=== PATIENT | male | born 2000 | race Caucasian/White ===

== ENCOUNTER 2021-05-10 16:40 | Emergency (ER) | payer MEDICAID ==
[~2021-05-10] VITALS: Ht 172.7 cm; Wt 75.0 kg
[2021-05-10] MEDS ORDERED: KEPPSOL GT (17:00)
[2021-05-10] MEDS ORDERED: LEVETIRACETAM 1000MG PREMIX 100 ML IV ONE (17:15)
[2021-05-10] MEDS ORDERED: TOPUD PO (18:04)
[2021-05-10] MEDS ORDERED: LEVETIRACETAM 500MG TABLET PO ONE (18:15)
[2021-05-10 18:40] VITALS: BP 118/76
== END 2021-05-10 18:41 | disposition home or self-care (01) ==
LOC: ER 16:40
DX: G40.909 Epilepsy, unspecified, not intractable, without status epilepticus (principal); Z91.14 Patient's other noncompliance with medication regimen; K94.03 Colostomy malfunction; Y82.8 Other medical devices associated with adverse incidents; Y92.018 Other place in single-family (private) house as the place of occurrence of the external cause; Z87.828 Personal history of other (healed) physical injury and trauma
CPT/HCPCS: 99283

== ENCOUNTER 2021-05-10 19:33 | Emergency (ER) | payer MEDICAID ==
[~2021-05-10] VITALS: Ht 190.5 cm; Wt 60.0 kg
[~2021-05-10 19:33] MED LIST: KEPPSOL GT; TOPUD PO
[2021-05-10 20:30] VITALS: BP 147/86
[2021-05-12] MEDS ORDERED: CLOT15CR27 TP (14:58)
== END 2021-05-11 | disposition home or self-care (01) ==
LOC: ER 19:33
DX: K94.03 Colostomy malfunction (principal); Z98.890 Other specified postprocedural states
CPT/HCPCS: 93005; 99283

== ENCOUNTER 2021-05-12 12:24 | Emergency (ER) | payer MEDICAID ==
[~2021-05-12] VITALS: Ht 185.4 cm; Wt 85.0 kg
[2021-05-12 12:28] VITALS: BP 133/76
[2021-05-12] MEDS ORDERED: IBUPROFEN 400MG TABLET PO ONE (13:00)
[2021-05-12] MEDS ORDERED: ACETAMINOPHEN 325MG TABLET PO ONE (13:00)
[2021-05-12] MEDS ORDERED: CLOT15CR27 TP (14:58)
== END 2021-05-12 16:11 | disposition home or self-care (01) ==
LOC: ER 12:24
DX: B35.3 Tinea pedis (principal); G40.909 Epilepsy, unspecified, not intractable, without status epilepticus; Z93.3 Colostomy status
CPT/HCPCS: 73630; 99283

== ENCOUNTER 2021-05-24 05:28 | Emergency (ER) | payer MEDICAID ==
[~2021-05-24] VITALS: Ht 175.3 cm; Wt 57.3 kg
[~2021-05-24 05:28] MED LIST changes: +CLOT15CR27 TP
[2021-05-24] MEDS ORDERED: ACETAMINOPHEN 325MG TABLET PO STA (06:45)
[2021-05-24 07:14] LABS: EOSINOPHILS % 2.9 % (0.0-5.0); HEMATOCRIT. 40.9 % (42.0-52.0); HEMOGLOBIN. 13.5 g/dL (14.0-18.0); LYMPHOCYTES % 39.2 % (20.0-50.0); MEAN CORPUSCULAR HEMOGLOBIN 30.3 pg (28.0-32.0); MEAN CORPUSCULAR VOLUME 91.7 fL (80.0-94.0); NEUTROPHILS % 45.9 % (40.0-76.0); RED BLOOD CELL COUNT 4.46 mill/uL (4.7-6.1); RED CELL DISTRIBUTION WIDTH 15.7 % (11.6-14.6)
[2021-05-24 07:24] LABS: CHLORIDE 109 mEq/L (98-107)
[2021-05-24 07:47] LABS: PLATELET 256 x1000/uL (130-400)
[2021-05-24 09:36] VITALS: BP 98/54
[2021-05-24] MEDS ORDERED: TOPUD MT (09:45)
== END 2021-05-24 10:11 | disposition home or self-care (01) ==
LOC: ER 05:28
DX: R10.31 Right lower quadrant pain (principal); I10 Essential (primary) hypertension; G40.909 Epilepsy, unspecified, not intractable, without status epilepticus; J45.909 Unspecified asthma, uncomplicated; F99 Mental disorder, not otherwise specified; F17.210 Nicotine dependence, cigarettes, uncomplicated; Z98.84 Bariatric surgery status; Z93.1 Gastrostomy status
CPT/HCPCS: 36415; 74018; 80053; 85025; 99284

== ENCOUNTER 2021-06-01 22:46 | Emergency (ER) | payer MEDICAID ==
[~2021-06-01] VITALS: Ht 177.8 cm; Wt 69.0 kg
[~2021-06-01 22:46] MED LIST changes: +TOPUD MT
[2021-06-02 00:34] LABS: CHLORIDE 108 mEq/L (98-107)
[2021-06-02 00:40] LABS: BASOPHILS % 0.4 % (0.0-2.0); EOSINOPHILS % 1.5 % (0.0-5.0); HEMATOCRIT. 40.2 % (42.0-52.0); HEMOGLOBIN. 13.4 g/dL (14.0-18.0); LYMPHOCYTES % 44.7 % (20.0-50.0); MEAN CORPUSCULAR HEMOGLOBIN 30.7 pg (28.0-32.0); MEAN CORPUSCULAR VOLUME 92.5 fL (80.0-94.0); MONOCYTES % 10.9 % (2.0-8.0); NEUTROPHILS % 42.5 % (40.0-76.0); PLATELET 273 x1000/uL (130-400); RED BLOOD CELL COUNT 4.35 mill/uL (4.7-6.1); RED CELL DISTRIBUTION WIDTH 15.3 % (11.6-14.6)
[2021-06-02] MEDS ORDERED: HYDROCODONE/ACETAMINOPHEN 5/325MG TABLET PO ONE (01:45)
[2021-06-02] MEDS ORDERED: IBUP-2029 MT (01:46)
[2021-06-02 01:49] VITALS: BP 122/87
== END 2021-06-02 02:06 | disposition home or self-care (01) ==
LOC: ER 22:46
DX: R10.9 Unspecified abdominal pain (principal); K85.90 Acute pancreatitis without necrosis or infection, unspecified; I10 Essential (primary) hypertension; G40.909 Epilepsy, unspecified, not intractable, without status epilepticus; J45.909 Unspecified asthma, uncomplicated; F99 Mental disorder, not otherwise specified; Z93.3 Colostomy status; Z87.828 Personal history of other (healed) physical injury and trauma; Z98.890 Other specified postprocedural states
CPT/HCPCS: 36415; 74021; 80053; 85025; 99284

== ENCOUNTER 2021-06-06 18:36 | Inpatient (IN) | payer MEDICAID ==
[~2021-06-06] VITALS: Ht 190.5 cm; Wt 72.6 kg
[~2021-06-06 18:36] MED LIST changes: +IBUP-2029 MT
[2021-06-06] MEDS ORDERED: ONDANSETRON HCL 4MG/2ML INJ IV STA (19:44)
[2021-06-06] MEDS ORDERED: MORPHINE SULFATE 4 MG/ML CPJ (NOT FOR IM USE) IV STA (19:44)
[2021-06-06] MEDS ORDERED: SODIUM CHLORIDE 0.9% 1,000 ML IV ONE (19:45)
[2021-06-06 21:20] LABS: BASOPHILS % 0.6 % (0.0-2.0); EOSINOPHILS % 1.1 % (0.0-5.0); HEMATOCRIT. 45.5 % (42.0-52.0); HEMOGLOBIN. 15.3 g/dL (14.0-18.0); LYMPHOCYTES % 36.6 % (20.0-50.0); MEAN CORPUSCULAR HEMOGLOBIN 30.3 pg (28.0-32.0); MEAN CORPUSCULAR VOLUME 90.3 fL (80.0-94.0); MEAN PLATELET VOLUME 7.1 fl (7.4-10.4); MONOCYTES % 8.9 % (2.0-8.0); NEUTROPHILS % 52.8 % (40.0-76.0); PLATELET 308 x1000/uL (130-400); RED BLOOD CELL COUNT 5.04 mill/uL (4.7-6.1); RED CELL DISTRIBUTION WIDTH 15.2 % (11.6-14.6)
[2021-06-06 21:24] LABS: CHLORIDE 105 mEq/L (98-107)
[2021-06-06 21:28] LABS: PARTIAL THROMBOPLASTIN TIME 29.1 sec (23.4-31.0); PROTHROMBIN TIME 10.5 sec (9.6-11.0)
[2021-06-07 02:12] LABS: CLARITY URINE CLEAR (CLEAR); COLOR URINE YELLOW (YELLOW); KETONES URINE NEGATIVE (NEGATIVE); LEUKOCYTE ESTERASE URINE NEGATIVE (NEGATIVE); NITRITE URINE NEGATIVE (NEGATIVE); OCCULT BLOOD URINE NEGATIVE (NEGATIVE); PH URINE 5.5 (4.5-8.0); PROTEIN URINE NEGATIVE (NEGATIVE); SPECIFIC GRAVITY URINE 1.018 (1.005-1.030); UROBILINOGEN URINE 0.2 E.U./dL (0.2-1.0)
[2021-06-07] MEDS ORDERED: MORPHINE SULFATE 4 MG/ML CPJ (NOT FOR IM USE) IV ONE (03:45)
[2021-06-07 11:17] VITALS: BP 111/49
[2021-06-07] MEDS ORDERED: TRAMADOL 50MG TABLET PO PRN (11:45)
[2021-06-07] MEDS ORDERED: ONDANSETRON HCL 4MG/2ML INJ IV PRN (11:45)
[2021-06-07] MEDS ORDERED: NALOXONE HCL 0.4MG/ML VIAL IV PRN (12:30)
[2021-06-07] MEDS: NICOTINE 21MG PATCH TD SCH (13:00)
[2021-06-07] MEDS: PANTOPRAZOLE SODIUM 40 MG/VIAL IV SCH ×2 (14:05→22:55)
[2021-06-07] MEDS ORDERED: KETOROLAC 30MG/ML VIAL IV PRN (17:45)
[2021-06-07] MEDS: HYDROCODONE/ACETAMINOPHEN 5/325MG TABLET PO PRN ×2 (18:13→22:56)
[2021-06-07 18:18] VITALS: BP 106/39
[2021-06-07 20:00] VITALS: BP 108/59
[2021-06-07] MEDS ORDERED: INFLUENZA VACCINE 05/PF 0.5 ML SYRINGE IM ONE (21:30)
[2021-06-08] VITALS: BP 99/59
[2021-06-08 00:14] LABS: HEMATOCRIT 41.1 % (42.0-52.0); HEMOGLOBIN 13.3 g/dL (14.0-18.0)
[2021-06-08 01:23] LABS: *AMPHETAMINES SCREEN URINE NEGATIVE (NEGATIVE); *BARBITURATES SCREEN URINE NEGATIVE (NEGATIVE); *BENZODIAZEPINES SCREEN URINE NEGATIVE (NEGATIVE); *COCAINE SCREEN URINE NEGATIVE (NEGATIVE); CANNABINOID URINE SCREEN PRESUMTIVE POSITIVE (NEGATIVE); METHADONE URINE SCREEN NEGATIVE (NEGATIVE); OPIATES URINE SCREEN PRESUMTIVE POSITIVE (NEGATIVE)
[2021-06-08 01:24] LABS: PHENCYCLIDINE URINE SCREEN NEGATIVE (NEGATIVE)
[2021-06-08] MEDS ORDERED: DIPHENHYDRAMINE 25MG CAPSULE PO PRN (01:45)
[2021-06-08 04:00] VITALS: BP 98/68
[2021-06-08 08:00] VITALS: BP 98/46
[2021-06-08] MEDS: PANTOPRAZOLE SODIUM 40 MG/VIAL IV SCH (09:30)
[2021-06-08 12:00] VITALS: BP 99/39
[2021-06-08] MEDS: NICOTINE 21MG PATCH TD SCH (12:50)
[2021-06-08] MEDS: HYDROCODONE/ACETAMINOPHEN 5/325MG TABLET PO PRN (12:51)
[2021-06-08 15:22] VITALS: BP 123/62
== END 2021-06-08 18:17 | disposition home or self-care (01) | DRG 253 ==
LOC: ER 18:36 → 7EST 06-07 03:14 → ENRESERV 06-07 10:06
PROVIDERS: ADMIT Internal Medicine; ATTEND Internal Medicine
DX: K92.2 Gastrointestinal hemorrhage, unspecified (principal); F17.210 Nicotine dependence, cigarettes, uncomplicated; J45.909 Unspecified asthma, uncomplicated; I10 Essential (primary) hypertension; G40.909 Epilepsy, unspecified, not intractable, without status epilepticus; R10.9 Unspecified abdominal pain; Z71.6 Tobacco abuse counseling; Z93.3 Colostomy status
CPT/HCPCS: 36415; 71045; 74176; 80053; 80305; 81003; 84484; 85014; 85018; 85025; 86850; 86900; 90686; 93005; 99285; C9113; J2270; J2405; J7030; Q0163

== ENCOUNTER 2021-08-27 20:58 | Emergency (ER) | payer MEDICAID ==
[~2021-08-27] VITALS: Ht 185.4 cm; Wt 84.0 kg
[2021-08-27] MEDS ORDERED: ACETAMINOPHEN 325MG TABLET PO STA (22:51)
[2021-08-27 23:12] LABS: CLARITY URINE CLEAR (CLEAR); COLOR URINE YELLOW (YELLOW); KETONES URINE TRACE (NEGATIVE); LEUKOCYTE ESTERASE URINE NEGATIVE (NEGATIVE); NITRITE URINE NEGATIVE (NEGATIVE); OCCULT BLOOD URINE NEGATIVE (NEGATIVE); PH URINE 5.5 (4.5-8.0); PROTEIN URINE 1+ (NEGATIVE); SPECIFIC GRAVITY URINE 1.021 (1.005-1.030); UROBILINOGEN URINE 0.2 E.U./dL (0.2-1.0)
[2021-08-27 23:32] LABS: CHLORIDE 114 mEq/L (98-107)
[2021-08-27 23:38] LABS: ETHANOL BLOOD < 10 mg/dL
[2021-08-27 23:39] LABS: BASOPHILS % 0.6 % (0.0-2.0); EOSINOPHILS % 2.6 % (0.0-5.0); HEMATOCRIT. 35.1 % (42.0-52.0); HEMOGLOBIN. 11.7 g/dL (14.0-18.0); LYMPHOCYTES % 25.9 % (20.0-50.0); MEAN CORPUSCULAR HEMOGLOBIN 30.7 pg (28.0-32.0); MEAN CORPUSCULAR VOLUME 91.7 fL (80.0-94.0); MEAN PLATELET VOLUME 7.2 fl (7.4-10.4); MONOCYTES % 11.7 % (2.0-8.0); NEUTROPHILS % 59.2 % (40.0-76.0); PLATELET 262 x1000/uL (130-400); RED BLOOD CELL COUNT 3.83 mill/uL (4.7-6.1); RED CELL DISTRIBUTION WIDTH 14.1 % (11.6-14.6)
[2021-08-28] MEDS ORDERED: AZIT250T12 PO (02:02)
[2021-08-28] MEDS ORDERED: DEXTL PO (02:02)
[2021-08-28] MEDS ORDERED: ALBU18HF2 IH (02:02)
[2021-08-28 03:07] VITALS: BP 126/65
== END 2021-08-28 03:22 | disposition home or self-care (01) ==
LOC: ER 20:58
DX: J45.901 Unspecified asthma with (acute) exacerbation (principal); R05.9 Cough, unspecified; R04.2 Hemoptysis; I10 Essential (primary) hypertension; G40.909 Epilepsy, unspecified, not intractable, without status epilepticus; F12.10 Cannabis abuse, uncomplicated; Z93.3 Colostomy status
CPT/HCPCS: 36415; 71045; 80053; 80320; 81003; 85025; 99284; G0480

== ENCOUNTER 2021-09-10 12:46 | Emergency (ER) | payer MEDICAID ==
[~2021-09-10] VITALS: Ht 190.5 cm; Wt 68.0 kg
[~2021-09-10 12:46] MED LIST changes: +ALBU18HF2 IH; +AZIT250T12 PO; -CLOT15CR27 TP; +DEXTL PO; -IBUP-2029 MT; -KEPPSOL GT; -TOPUD MT; -TOPUD PO
[2021-09-10 13:21] VITALS: BP 116/31
== END 2021-09-10 16:24 | disposition home or self-care (01) ==
LOC: ER 12:46
DX: Z43.3 Encounter for attention to colostomy (principal); J45.909 Unspecified asthma, uncomplicated; I10 Essential (primary) hypertension; G40.909 Epilepsy, unspecified, not intractable, without status epilepticus; F12.10 Cannabis abuse, uncomplicated; Z87.828 Personal history of other (healed) physical injury and trauma; Z98.890 Other specified postprocedural states
CPT/HCPCS: 99281

== ENCOUNTER 2023-06-11 01:29 | Emergency (ER) | payer MEDICAID ==
[~2023-06-11] VITALS: Ht 170.2 cm; Wt 70.0 kg
[~2023-06-11 01:29] MED LIST changes: -AZIT250T12 PO
[2023-06-11 01:31] VITALS: O2SAT 98
[2023-06-11] MEDS: SODIUM CHLORIDE 0.9% 1,000 ML IV ONE (03:18)
[2023-06-11] MEDS: KETOROLAC 15MG/ML VIAL IV ONE (03:19)
[2023-06-11 03:24] LABS: HEMATOCRIT. 37.2 % (42.0-52.0); HEMOGLOBIN. 12.4 g/dL (14.0-18.0); MEAN CORPUSCULAR HEMOGLOBIN 29.8 pg (28.0-32.0); MEAN CORPUSCULAR HGB CONC 33.4 g/dL (31.0-37.0); MEAN CORPUSCULAR VOLUME 89.2 fL (80.0-94.0); MEAN PLATELET VOLUME 6.9 fl (7.4-10.4); PLATELET 236 x1000/uL (130-400); RED BLOOD CELL COUNT 4.17 mill/uL (4.7-6.1); RED CELL DISTRIBUTION WIDTH 16.8 % (11.6-14.6); WHITE BLOOD COUNT 3.9 x1000/uL (4.5-11.0)
[2023-06-11 03:34] LABS: DIFFERENTIAL COMMENT 1
[2023-06-11 03:37] LABS: PROTHROMBIN TIME 11.2 sec (9.6-11.0)
[2023-06-11 04:46] LABS: ALANINE AMINOTRANSFERASE 27 IU/L (10-49); ASPARTATE AMINOTRANSFERASE 40 IU/L (<34); BILIRUBIN TOTAL 0.6 mg/dL (0.1-1.0); CALCIUM 8.9 mg/dL (8.7-10.4); CARBON DIOXIDE 22 mEq/L (21-32); CHLORIDE 108 mEq/L (98-107); CREATININE 0.7 mg/dL (0.6-1.3); ETHANOL BLOOD < 10 mg/dL (<10); GLUCOSE 81 mg/dL (70-105); POTASSIUM 3.6 mEq/L (3.5-5.1); PROTEIN TOTAL 7.3 g/dL (6.0-8.3); SODIUM 140 mEq/L (136-145); UREA NITROGEN BLOOD 12 mg/dL (9-23)
[2023-06-11 05:00] VITALS: BP 101/59; PULSE 79; RESP 14; TEMP 98.5
[2023-06-11 05:37] LABS: PLATELET ESTIMATE NORMAL
== END 2023-06-11 05:01 | disposition home or self-care (01) ==
LOC: ER 01:29
DX: F19.90 Other psychoactive substance use, unspecified, uncomplicated (principal); Z46.89 Encounter for fitting and adjustment of other specified devices; Z00.00 Encounter for general adult medical examination without abnormal findings
CPT/HCPCS: 80053; 80320; 83690; 85025; 85610; 36415; 96361; 96374; 99283; J1885; J7030; Z7610 ×4; G0480

== ENCOUNTER 2023-09-27 17:23 | Emergency (ER) | payer MEDICAID ==
[~2023-09-27] VITALS: Ht 188 cm; Wt 68.0 kg
[2023-09-27 17:59] VITALS: O2SAT 100
[2023-09-27 20:53] VITALS: BP 132/68; PULSE 110; RESP 16; TEMP 98.4
== END 2023-09-27 23:00 | disposition home or self-care (01) ==
LOC: ER 17:23
DX: K94.03 Colostomy malfunction (principal); J45.909 Unspecified asthma, uncomplicated; I10 Essential (primary) hypertension; R56.9 Unspecified convulsions
CPT/HCPCS: 99281

== ENCOUNTER 2023-10-09 12:08 | Emergency (ER) | payer MEDICAID ==
[~2023-10-09] VITALS: Ht 182.9 cm; Wt 68.0 kg
[2023-10-09 12:14] VITALS: BP 122/59; PULSE 99; RESP 16; TEMP 98.5; O2SAT 97
== END 2023-10-09 14:34 | disposition home or self-care (01) ==
LOC: ER 12:08
DX: K94.03 Colostomy malfunction (principal); J45.909 Unspecified asthma, uncomplicated; Z86.59 Personal history of other mental and behavioral disorders
CPT/HCPCS: 99281; Z7610

== ENCOUNTER 2024-08-01 00:25 | Emergency (ER) | payer MEDICAID ==
[~2024-08-01] VITALS: Ht 177.8 cm; Wt 69.0 kg
[2024-08-01 00:29] VITALS: BP 159/114; PULSE 106; RESP 22; TEMP 37.3; O2SAT 99
== END 2024-08-01 01:16 | disposition home or self-care (01) ==
LOC: ER 00:33
DX: Z93.3 Colostomy status (principal); J45.909 Unspecified asthma, uncomplicated; F41.9 Anxiety disorder, unspecified; Z86.59 Personal history of other mental and behavioral disorders
CPT/HCPCS: 99283

== ENCOUNTER 2025-03-21 03:17 | Emergency (ER) | payer MEDICAID ==
[~2025-03-21] VITALS: Ht 167.6 cm; Wt 60.0 kg
[2025-03-21 03:19] VITALS: O2SAT 100
[2025-03-21] MEDS ORDERED: KETOROLAC 15MG/ML VIAL IV ONE (03:30)
[2025-03-21] MEDS ORDERED: ONDANSETRON HCL 4MG/2ML INJ IV ONE (03:30)
[2025-03-21 04:51] LABS: HEMATOCRIT. 38.1 % (42.0-52.0); HEMOGLOBIN. 12.6 g/dL (14.0-18.0); MEAN PLATELET VOLUME 7.1 fl (7.4-10.4); PLATELET 214 x1000/uL (130-400); RED BLOOD CELL COUNT 4.19 mill/uL (4.7-6.1); RED CELL DISTRIBUTION WIDTH 14.5 % (11.6-14.6)
[2025-03-21 05:04] LABS: CREATININE 0.8 mg/dL (0.6-1.3); UREA NITROGEN BLOOD 13 mg/dL (9-23)
[2025-03-21 05:06] LABS: ASPARTATE AMINOTRANSFERASE 52 IU/L (<34); BILIRUBIN DIRECT 0.3 mg/dL (<=3.0); BILIRUBIN TOTAL 1.1 mg/dL (0.1-1.0); PROTEIN TOTAL 7.2 g/dL (6.0-8.3)
[2025-03-21] MEDS: ONDANSETRON HCL 4MG/2ML INJ IV NR (05:38)
[2025-03-21] MEDS ORDERED: ONDA4TAB50 MT (05:42)
[2025-03-21] MEDS ORDERED: IBUP-1455 MT (05:42)
[2025-03-21] MEDS: KETOROLAC 15MG/ML VIAL IV NR (05:46)
[2025-03-21] MEDS: SODIUM CHLORIDE 0.9% 1,000 ML IV ONE (05:46)
[2025-03-21 07:14] VITALS: BP 113/62; PULSE 78; RESP 18; TEMP 37.1; O2SAT 100
[2025-03-21 09:04] LABS: BAND% 1.0 % (1.0-6.0); EOSINOPHILS % MANUAL 1.0 % (0.0-5.0); LYMPHOCYTES % MANUAL 15.0 % (20.0-50.0); MONOCYTES % MANUAL 20.0 % (2.0-8.0); NEUTROPHILS % MANUAL 63.0 % (45.0-75.0); PLATELET ESTIMATE NORMAL
== END 2025-03-21 08:20 | disposition home or self-care (01) ==
LOC: ER 03:17 → CANBEDREQ 08:45
DX: R10.30 Lower abdominal pain, unspecified (principal); J45.909 Unspecified asthma, uncomplicated; F41.9 Anxiety disorder, unspecified; Z93.3 Colostomy status
CPT/HCPCS: 80076; 80048; 80320; 83690; 85025; 36415; 74176; 96361; 96374; 96375; 99285; J1885; J2405; J7030; G0480